=== PATIENT | male | born 2000 | race Caucasian/White ===

== ENCOUNTER 2024-12-27 07:53 | Outpatient (RCR) | payer OTHER ==
[~2024-12-27 07:53] MED LIST: PARO5TAB
== END 2025-01-25 ==
LOC: M ONCR 07:53
PROVIDERS: ATTEND General Practice
DX: Z51.0 Encounter for antineoplastic radiation therapy (principal); L91.0 Hypertrophic scar

== ENCOUNTER → 2025-01-22 | Outpatient (CLI) | payer OTHER | LOC: M ONCR 07:55 | PROVIDERS: ATTEND General Practice | DX: L91.0 Hypertrophic scar (principal); Z92.3 Personal history of irradiation ==